=== PATIENT | male | born 1990 | race African-American/Black ===

== ENCOUNTER 2022-06-18 08:21 | Outpatient (CLI) | payer OTHER, SELFPAY ==
--- NOTE | 2022-06-18 11:00 | NEURO_ITS ---
Impression: Patient reports a history of bilateral elbow pain and paresthesias. # Mild bilateral Carpal Tunnel Syndrome. # Normal needle/EMG exam. # Clinical correlation recommended. Motor Nerve Conduction Upper Extremities Median Nerve Conduction Velocity (m/sec) Terminal Latency (msec) Response Voltage(mV) Elbow-Wrist Wrist Elbow Wrist Right 55 3.8 6 6 Left 52 3.9 5 6 Ulnar Nerve Conduction Velocity (m/sec) Terminal Latency (msec) Response Voltage(mV) Above Elbow Below Elbow Wrist Above Elbow Below Elbow Wrist Right 56 55 2.3 7 7 8 Left 53 53 2.6 7 8 8 F-Wave Latency Median (ms) Ulnar (ms) Right 31.3 29.7 Left 30.4 30.7 Sensory Nerve Conduction Upper Extremities Median Nerve Stimulation Terminal Latency (msec) Wrist/Digit Response Voltage (uV) Wrist Right 4.1/4.7 20/19 Left 4.0/4.3 32/35 Ulnar Nerve Stimulation Terminal Latency (msec) Wrist/Digit Response Voltage (uV) Wrist Right 2.2 5 Left 2.5 35 Radial Nerve Terminal Latency (msec) Response Voltage(mV) Right 2.3 30 Left 2.4 41 Left Right Muscles Examined Fibrillation Fasciculation Scarcity Voltage Duration Left Right Left Right Left Right Left Right Left Right Deltoid Biceps X X Brachioradialis Triceps X X Pronator Teres X X Ext Indicis X X Ext Digitorum X X Abd Poll Brev X X 1st Dorsal Interosseus Paraspinals MTDD
== END 2022-06-18 08:22 | disposition home or self-care (01) ==
LOC: ANHNEURO 08:22
PROVIDERS: Visit Provider Internal Medicine Infectious Disease
DX: G62.9 Polyneuropathy, unspecified (principal); G56.03 Carpal tunnel syndrome, bilateral upper limbs
CPT/HCPCS: 95886; 95911